=== PATIENT | female | born 1990 | race American Indian/Alaskan Native ===

== ENCOUNTER 2021-08-01 20:12 | Emergency (ER) | payer SELFPAY ==
[2021-08-01 21:28] VITALS: BP 158/92
[2021-08-01] MEDS ORDERED: traMADol 50 MG TAB PO ONE (22:11)
[2021-08-01] MEDS ORDERED: SULFAMETHOXAZOLE/TRIMETHOPRIM 800/160MG DS TAB PO ONE (22:11)
[2021-08-01] MEDS ORDERED: IBUPROFEN 600 MG TAB PO ONE (22:11)
--- NOTE | 2021-08-01 22:43 | XRay Report ---
RIGHT WRIST 3 VIEWS INDICATION / CLINICAL INFORMATION: Pain, swelling, infected joint COMPARISON: None available. FINDINGS: BONES / JOINT(S): No acute fracture or subluxation. No significant arthritis. SOFT TISSUES: There is soft tissue swelling along the ulnar aspect of the wrist. No soft tissue gas s een. ADDITIONAL FINDINGS: None. Signer Name: Ramon Virgen MD Signed: 08/01/2021 10:39 PM Workstation Name: [id number]
--- NOTE | 2021-08-01 22:56 | Emergency Department Report ---
ED Extremity Problem HPI - General Chief complaint: Extremity Injury, Upper Stated complaint: HAND PAIN Source: patient Mode of arrival: Ambulatory Limitations: Physical Limitation - History of Present Illness Initial comments: Patient is a 31-year-old -[place] female with no past medical history presents to the ED with complaint of acute onset persistent severe nontraumatic right wrist pain for the last 1 week. Patient states that initially the right wrist joint was significantly swollen with severe pain and she has not been able to perform any active range of motion of the right wrist because of pain. Patient states that she was initially evaluated and treated at [facility] emergency department and started on clindamycine 450 mg 3 times a day and only managed to take these medications for 3 days before she started having persistent chest tightness, itching and nausea and vomiting. Patient states that she then stopped taking the medications although the few days that she took the medication helped improve the swelling of her right wrist. Patient states that prior to being evaluated at the ER in [facility] she accidentally bumped the wrist against the wall and thick purulent discharge drained from a small wound. Patient states that the pain in the right wrist has persisted, swelling is improved but she is unable to perform any active range of motion of the right wrist because of worsening pain. Patient states the pain radiates proximally towards her right elbow. Patient denies fall, traumatic injury, heavy lifting, fever, chills, cough, nausea and vomiting, numbness and tingling or weakness of right wrist or right hand, chest pain or shortness of breath, change in vision or heavy lifting. MD Complaint: extremity pain (right wrist pain and swelling), extremity swelling (right wrist pain and swelling), joint swelling, joint paint -: Sudden, week(s) (1) Location: right, upper extremity (right wrist pain, swelling) History of Same: No -: Yes arthralgia, No fever, No associated dyspnea, No associated chest pain Radiation: proximal Severity scale (0 -10): 8 Quality: aching, sharp, constant Consistency: constant Improves with: nothing Worsens with: weight bearing, palpation Associated Symptoms: denies other symptoms, arthralgias (right wrist joint pain and swelling). denies: chest pain, shortness of breath, fever, myalgias - Related Data Previous Rx's Medication Instructions Recorded Last Taken Type Ibuprofen [Motrin] 600 mg PO Q8H PRN #30 tablet 08/01/21 Unknown Rx Ondansetron [Zofran Odt] 4 mg PO Q6HR PRN #15 tab.rapdis 08/01/21 Unknown Rx Sulfamethoxazole/Trimethoprim 1 each PO Q12H #20 tab 08/01/21 Unknown Rx [Bactrim DS TAB] traMADoL [Ultram] 50 mg PO Q6HR PRN #12 tablet 08/01/21 Unknown Rx Allergies Allergy/AdvReac Type Severity Reaction Status Date / Time Penicillins Allergy Severe Swelling Verified 08/01/21 22:51 ED Review of Systems ROS: Stated complaint: HAND PAIN Other details as noted in HPI Constitutional: denies: chills, fever Eyes: denies: eye pain, eye discharge, vision change ENT: denies: ear pain, throat pain Respiratory: denies: cough, shortness of breath, wheezing Cardiovascular: denies: chest pain, palpitations Endocrine: no symptoms reported Gastrointestinal: denies: abdominal pain, nausea, diarrhea Genitourinary: denies: urgency, dysuria, discharge Musculoskeletal: joint swelling (Right wrist pain and swelling), arthralgia (Right wrist pain and swelling). denies: back pain Skin: denies: rash, lesions Neurological: denies: headache, weakness, paresthesias Psychiatric: denies: anxiety, depression Hematological/Lymphatic: denies: easy bleeding, easy bruising ED Past Medical Hx - Past Medical History Previous Medical History?: Yes Hx Hypertension: Yes Hx Asthma: Yes - Surgical History Past Surgical History?: No - Social History Smoking Status: Current Every Day Smoker Substance Use Type: Marijuana - Medications Home Medications: Home Medications Medication Instructions Recorded Confirmed Last Taken Type Ibuprofen [Motrin] 600 mg PO Q8H PRN #30 tablet 08/01/21 Unknown Rx Ondansetron [Zofran Odt] 4 mg PO Q6HR PRN #15 tab.rapdis 08/01/21 Unknown Rx Sulfamethoxazole/Trimethoprim 1 each PO Q12H #20 tab 08/01/21 Unknown Rx [Bactrim DS TAB] traMADoL [Ultram] 50 mg PO Q6HR PRN #12 tablet 08/01/21 Unknown Rx ED Physical Exam - General Limitations: Physical Limitation General appearance: alert, in no apparent distress - Head Head exam: Present: atraumatic, normocephalic, normal inspection - Eye Eye exam: Present: normal appearance, PERRL, EOMI Pupils: Present: normal accommodation - ENT ENT exam: Present: normal exam, normal orophraynx, mucous membranes moist, TM's normal bilaterally, normal external ear exam - Neck Neck exam: Present: normal inspection, full ROM - Respiratory Respiratory exam: Present: normal lung sounds bilaterally. Absent: respiratory distress, wheezes, chest wall tenderness, accessory muscle use, decreased breath sounds, prolonged expiratory - Cardiovascular Cardiovascular Exam: Present: normal rhythm, bradycardia, normal heart sounds. Absent: systolic murmur, diastolic murmur, rubs, gallop - GI/Abdominal GI/Abdominal exam: Present: soft, normal bowel sounds. Absent: distended, tenderness, rebound, hyperactive bowel sounds, hypoactive bowel sounds - Extremities Exam Extremities exam: Present: normal inspection, tenderness (Palpable right wrist tenderness with limited range of motion due to pain), normal capillary refill, joint swelling (Mild right wrist swelling and severe tenderness). Absent: full ROM (Limited range of motion of right wrist due to pain), pedal edema, calf tenderness - Back Exam Back exam: Present: normal inspection, full ROM. Absent: tenderness, CVA tenderness (R), CVA tenderness (L), muscle spasm, paraspinal tenderness - Neurological Exam Neurological exam: Present: alert, oriented X3, CN II-XII intact, normal gait, reflexes normal - Psychiatric Psychiatric exam: Present: normal affect, normal mood - Skin Skin exam: Present: warm, dry, intact, rash (Mild erythematous maculopapular rash on right wrist), erythema. Absent: normal color ED Course Vital Signs 08/01/21 21:26 Temperature 98.4 F Pulse Rate 54 L Respiratory 18 Rate Blood Pressure 158/92 O2 Sat by Pulse 100 Oximetry ED Medical Decision Making - Radiology Data Radiology results: report reviewed, image reviewed [facility] [address] [place] [address] XRay Report Signed Patient: TARYN GROSS MR#: [id number] [birth year] : 1990 Acct:[id number] Age/Sex: 31 / F ADM Date: 08/01/21 Loc: ED Attending Dr: Ordering Physician: COMPA WHITING Date of Service: 08/01/21 Procedure(s): XR wrist 3+V RT Accession Number(s): [id number] cc: COMPA WHITING Fluoro Time In Minutes: RIGHT WRIST 3 VIEWS INDICATION / CLINICAL INFORMATION: Pain, swelling, infected joint COMPARISON: None available. FINDINGS: BONES / JOINT(S): No acute fracture or subluxation. No significant arthritis. SOFT TISSUES: There is soft tissue swelling along the ulnar aspect of the wrist. No soft tissue gas seen. ADDITIONAL FINDINGS: None. Signer Name: Ramon Virgen MD Signed: 08/01/2021 10:39 PM Workstation Name: [id number] Transcribed By: GEGE Dictated By: Ramon Virgen MD Electronically Authenticated By: Raomn Virgen MD Signed Date/Time: 08/01/212238 DD/ 38 TD/TT: Print - Medical Decision Making This is a 31-year-old -[place] female with no past medical history presents to the ED with complaint of acute onset persistent severe nontraumatic right wrist pain for the last 1 week. Patient states that initially the right wrist joint was significantly swollen with severe pain and she has not been able to perform any active range of motion of the right wrist because of pain. Patient states that she was initially evaluated and treated at [facility] emergency department and started on clindamycine 450 mg 3 times a day and only managed to take these medications for 3 days before she started having persistent chest tightness, itching and nausea and vomiting. Patient states that she then stopped taking the medications although the few days that she took the medication helped improve the swelling of her right wrist. Patient states that prior to being evaluated at the ER in [facility] she accidentally bumped the wrist against the wall and thick purulent discharge drained from a small wound. Patient states that the pain in the right wrist has persisted, swelling is improved but she is unable to perform any active range of motion of the right wrist because of worsening pain. Patient states the pain radiates proximally towards her right elbow. In the ED, patient is alert and oriented x3 and is not in any distress. Patient is symptomatically stable. Patient was treated for pain in the ED and also given initial oral antibiotics in the ED. Patient right wrist x-ray showed no acute fractures or subluxations, no sign of osteomyelitis, but swollen soft tissue on the ulnar aspect of the right wrist with no sign of any soft tissue gas. On reevaluation, patient's pain is well controlled medication. Patient right wrist was splinted with Velcro splint and the patient was discharged home on pain medications and a different antibiotics Bactrim DS to be taken twice a day, and patient was given a referral to the orthopedic surgeon Dr. Jaimes for further evaluation. Patient was advised to contact Dr. Jaimes's office first thing in the morning on Monday, August 02, 2021 to schedule a follow-up appointment. Patient was advised return to the ED immediately if symptoms get worse. - Differential Diagnosis Cellulitis; tenosynovitis; tendinitis; cutaneous abscess; wrist sprain Critical care attestation.: If time is entered above; I have spent that time in minutes in the direct care of this critically ill patient, excluding procedure time. ED Disposition Clinical Impression: Right wrist tendinitis, Cellulitis of right wrist Disposition: HOME / SELF CARE / HOMELESS Is pt being admited?: No Does the pt Need Aspirin: No Condition: Stable Instructions: Cellulitis, Adult, [id number], Tendinitis, [id number] Additional Instructions: The right wrist x-ray showed no acute fractures or subluxations or any sign of bone infection. Therefore take medications as advised, drink plenty fluids and follow-up with your primary care physician in 7 to 10 days for reevaluation. Consider following up with the orthopedic surgeon Dr. Jaimes as advised. Contact his office first thing in the morning on Monday, August 02, 2021 to schedule a follow-up appointment. Return to the ED immediately if symptoms get worse. Prescriptions: Sulfamethoxazole/Trimethoprim [Bactrim DS TAB] 1 each PO Q12H #20 tab Ibuprofen [Motrin] 600 mg PO Q8H PRN #30 tablet PRN Reason: Pain traMADoL [Ultram] 50 mg PO Q6HR PRN #12 tablet PRN Reason: Pain Ondansetron [Zofran Odt] 4 mg PO Q6HR PRN #15 tab.rapdis PRN Reason: Nausea Referrals: NICK JAIMES MD [Staff Physician] - 2-3 Days [facility] [Provider Group] - 7-10 days Forms: Work/School Release Form(ED) Time of Disposition: 23:08 Print Language: LUXEMBOURG[place]
== END 2021-08-02 00:03 | disposition home or self-care (01) ==
LOC: ED 20:12
DX: M67.833 Other specified disorders of tendon, right wrist (principal); L03.113 Cellulitis of right upper limb; F17.200 Nicotine dependence, unspecified, uncomplicated; F12.90 Cannabis use, unspecified, uncomplicated; Z88.0 Allergy status to penicillin; I10 Essential (primary) hypertension; J45.909 Unspecified asthma, uncomplicated
CPT/HCPCS: 99284